=== PATIENT | male | born 1995 | race Caucasian/White ===

== ENCOUNTER 2016-11-02 07:31 | Emergency (ER) | payer OTHER ==
[2016-11-02] MEDS ORDERED: Sodium Chloride 0.9% 10 ML Syringe FLUSH PRN (07:41)
[2016-11-02] MEDS ORDERED: LORazepam 2 MG/ML MDV IVPUSH ONE (07:42)
[2016-11-02] MEDS ORDERED: Sodium Chloride 0.9% 1,000 ML IV SCH (07:45)
--- NOTE | 2016-11-02 08:23 | EDM.PDOC ---
ED HPI SEIZURE COMPLAINT - General Chief Complaint: Neurological Problem Stated Complaint: [facility] Time Seen by Provider: 11/02/16 07:36 Source of Information: Reports: Patient, EMS, Family History Limitations: Reports: No limitations - History of Present Illness INITIAL COMMENTS - FREE TEXT/NARRATIVE: The patient presents with a seizure. Four years ago the patient had a head injury from football and had seizures after that. He was on triletptil and doing good. He had an EEG in August and that looked good so since August he has been weaning off of his medicine. Two weeks ago was his last dose. This is the 3rd seizure he has had in 2 weeks. 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 This morning his brother heard him thrashing around in his bed and called 911. The seizure lasted about 2 minutes when his brother saw him. It was probably longer. He denies drinking any alcohol. He has no fever, chills, cough, congestion runny nose, chest pain, shortness of breath, nausea or vomiting. He had no recent head injury. Timing/Duration: Reports: minutes: (at least 2) Event Occurred (Where): home Event (Witnessed/Unwitnessed): witnessed (the last part of the seizure) Location: Reports: generalized Quality: Reports: generalized shaking Severity: severe Context: Reports: new/change in medications. Denies: recent ETOH, trauma Pre Event Symptom(s): Reports: other (He was sleeping) Post Event Symptoms: Reports: confused - Related Data Allergies/ADRs: Allergies Allergy/AdvReac Type Severity Reaction Status Date / Time No Known Allergies Allergy Verified 11/02/16 07:46 Past Medical History Neurological History: Reports: Concussion, Head trauma, Seizure - Infectious Disease History Infectious Disease History: Reports: Chicken pox Social & Family History - Family History Family Medical History: Noncontributory - Tobacco Use Smoking Status *Q: Never Smoker Second Hand Smoke Exposure: No - Caffeine Use Caffeine Use: Reports: Coffee - Recreational Drug Use Recreational Drug Use: No ED ROS GENERAL - Review of Systems Review Of Systems: See Below Constitutional: Reports: no symptoms HEENT: Reports: No symptoms Respiratory: Reports: no symptoms Cardiovascular: Reports: No symptoms Endocrine: Reports: no symptoms GI/Abdominal: Reports: No symptoms : Reports: no symptoms Musculoskeletal: Reports: no symptoms Skin: Reports: no symptoms Neurological: Reports: no symptoms - Physical Exam Exam: See Below Exam Limited By: No limitations General Appearance: alert, no apparent distress Ears: normal external exam Nose: normal inspection Head Exam: atraumatic, normocephalic Neck: normal inspection Respiratory/Chest: no respiratory distress, lungs clear, normal breath sounds Cardiovascular: no edema, no murmur, tachycardia GI/Abdominal: soft, non tender, no organomegaly, no mass Neuro Exam (Abbreviated): alert, oriented, CN II-XII intact, no motor/sensory deficits Course - Vital Signs Last Recorded V/S: Last Vital Signs Temp Pulse 125 H 11/02/16 07:38 Resp 18 11/02/16 07:38 BP 135/84 11/02/16 07:38 Pulse Ox 100 11/02/16 07:38 - Orders/Labs/Meds Orders: Active Orders 24 hr Category Date Time Status Cardiac Monitoring [RC] . DIRECTED Care 11/02/16 07:42 Active Peripheral IV Care [RC] . DIRECTED Care 11/02/16 07:42 Active Sodium Chloride 0.9% [Normal Saline] 1,000 ml Med 11/02/16 07:45 Active IV ASDIRECTED Sodium Chloride 0.9% [Saline Flush] Med 11/02/16 07:41 Active 10 ml FLUSH ASDIRECTED PRN Peripheral IV Insertion Adult [OM.PC] Stat Oth 11/02/16 07:41 Ordered Medication Orders Sodium Chloride (Normal Saline) 1,000 mls @ 125 mls/hr IV ASDIRECTED ALICIA Last Admin: 11/02/16 08:02 Dose: 125 mls/hr Sodium Chloride (Saline Flush) 10 ml FLUSH ASDIRECTED PRN PRN Reason: Keep Vein Open Last Admin: 11/02/16 08:03 Dose: 10 ml Labs: Laboratory Tests 11/02/16 11/02/16 Range/Units 07:55 07:55 WBC 6.59 (4.23-9.07) K/mm3 RBC 5.60 (4.63-6.08) M/mm3 Hgb 15.5 (13.7-17.5) gm/L Hct 46.3 (40.1-51.0) % MCV 82.7 (79.0-92.2) fl MCH 27.7 (25.7-32.2) pg MCHC 33.5 (32.2-35.5) g/dl RDW Std Deviation 39.4 (35.1-43.9) fL Plt Count 284 (163-337) K/mm3 MPV 10.7 (9.4-12.3) fl Neut % (Auto) 50.8 (34.0-67.9) % Lymph % (Auto) 35.2 (21.8-53.1) % Forest % (Auto) 10.5 (5.3-12.2) % Eos % (Auto) 2.7 (0.8-7.0) Baso % (Auto) 0.5 (0.1-1.2) % Neut # 3.35 (1.78-5.38) K/mm3 Lymph # 2.32 (1.32-3.57) K/mm3 Forest # 0.69 (0.30-0.82) K/mm3 Eos # 0.18 (0.04-0.54) K/mm3 Baso # 0.03 (0.01-0.08) K/mm3 Sodium 141 (136-145) mEq/L Potassium 3.8 (3.5-5.1) mEq/L Chloride 103 (98-107) mEq/L Carbon Dioxide 25 (21-32) mEq/L Anion Gap 16.8 H (5-15) BUN 19 H (7-18) mg/dL Creatinine 1.2 (0.7-1.3) mg/dL Est Cr Clr Drug Dosing 98.85 mL/min Estimated GFR (MDRD) > 60 (>60) mL/min BUN/Creatinine Ratio 15.8 (14-18) Glucose 95 (74-106) mg/dL Calcium 9.5 (8.5-10.1) mg/dL Magnesium 2.1 (1.8-2.4) mg/dl Total Bilirubin 0.5 (0.2-1.0) mg/dL AST 22 (15-37) U/L ALT 41 (16-63) U/L Alkaline Phosphatase 55 (46-116) U/L Total Protein 7.8 (6.4-8.2) g/dl Albumin 4.1 (3.4-5.0) g/dl Globulin 3.7 gm/dL Albumin/Globulin Ratio 1.1 (1-2) Meds: Medications Generic Name Dose Route Start Last Admin Trade Name Freq PRN Reason Stop Dose Admin Sodium Chloride 1,000 mls @ 125 mls/hr 11/02/16 07:45 11/02/16 08:02 Normal Saline IV 125 mls/hr ASDIRECTED ALICIA Administration Sodium Chloride 10 ml 11/02/16 07:41 11/02/16 08:03 Saline Flush FLUSH 10 ml ASDIRECTED PRN Administration Keep Vein Open Discontinued Medications Generic Name Dose Route Start Last Admin Trade Name Freq PRN Reason Stop Dose Admin Lorazepam 1 mg 11/02/16 07:42 11/02/16 07:59 Ativan IVPUSH 11/02/16 07:43 1 mg ONETIME ONE Administration - Re-Assessments/Exams Free Text/Narrative Re-Assessment/Exam: 11/02/16 08:24 I ordered an IV NS at 125mL/hr, ativan 1mg IV and labs. I do not feel he needs any CT at this time. He has a history and he is under the care of a neurologist in [place], [place]. 11/02/16 09:09 His brother was in the room and I was able to clarify some things. This is his 3rd seizure in his life. The 1st one happened when he was exhausted and fell and hit his head. 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 An EEG was done and there was a seizure focus identified and it was thought to be from repeated concussions form football. His labs look good. He would like to call his neurologist on Friday and see if he wants him to start his medications again. Departure - Departure Time of Disposition: 09:15 Disposition: Home, Self-Care 01 Condition: good Clinical Impression: Seizure Forms: ED Department Discharge Additional Instructions: Drink plenty of fluids. Get plenty of rest. Call your doctor on Friday. Do not drink alcohol. Do not drive until your neurologist clears you. Do not swim and shower instead of taking a bath. Please return if you are worse. - My Orders Last 24 Hours: My Active Orders 11/02/16 07:41 Sodium Chloride 0.9% [Saline Flush] 10 ml FLUSH ASDIRECTED PRN Peripheral IV Insertion Adult [OM.PC] Stat 11/02/16 07:42 Cardiac Monitoring [RC] . DIRECTED Peripheral IV Care [RC] . DIRECTED 11/02/16 07:45 Sodium Chloride 0.9% [Normal Saline] 1,000 ml IV ASDIRECTED - Assessment/Plan Last 24 Hours: My Active Orders 11/02/16 07:41 Sodium Chloride 0.9% [Saline Flush] 10 ml FLUSH ASDIRECTED PRN Peripheral IV Insertion Adult [OM.PC] Stat 11/02/16 07:42 Cardiac Monitoring [RC] . DIRECTED Peripheral IV Care [RC] . DIRECTED 11/02/16 07:45 Sodium Chloride 0.9% [Normal Saline] 1,000 ml IV ASDIRECTED
[2016-11-02 09:38] VITALS: BP 125/93
== END 2016-11-02 09:34 | disposition home or self-care (01) ==
LOC: JD.ED 07:31
DX: R56.9 Unspecified convulsions (principal)
CPT/HCPCS: 36415; 80053; 83735; 85025; 96361; 96374; 99285; J2060; J7040; J7050; 99284